=== PATIENT | male | born 1985 | race Caucasian/White ===

== ENCOUNTER → 2016-07-20 | Outpatient (REF) ==
[~2016-07-20] MED LIST: CLEOCIN HCL300 MG PO; DEPRESSION MED PO; MOTRIN 800800 MG/TAB PO; NO HOME MEDICATIONS; NORCO 325 MG-7.1 TAB PO; PERCOCET 325 MG1 TA2 PO; TAMIFLU 75MG75 MG PO; ZITHROMAX TRI-500 MG PO
== END ==
LOC: WSOH 13:05
DX: Z01.83 Encounter for blood typing (principal)

== ENCOUNTER 2016-09-04 19:56 | Emergency (ER) | payer BC ==
[~2016-09-04] VITALS: Ht 180.3 cm; Wt 87.3 kg
[2016-09-04 19:59] VITALS: TEMP 98.2
[2016-09-04 20:50] VITALS: BP 125/85; PULSE 76
== END 2016-09-04 20:50 | disposition home or self-care (01) ==
LOC: COL.ER 19:56
DX: S51.812A Laceration without foreign body of left forearm, initial encounter (principal); W22.8XXA Striking against or struck by other objects, initial encounter; Y92.009 Unspecified place in unspecified non-institutional (private) residence as the place of occurrence of the external cause

== ENCOUNTER 2017-07-18 16:37 | Emergency (ER) | payer SELFPAY ==
[~2017-07-18] VITALS: Ht 180.3 cm; Wt 90.0 kg
[2017-07-18 16:39] VITALS: TEMP 96.9
[2017-07-18] MEDS ORDERED: AMOXICILLIN 50500 MG PO (17:12)
[2017-07-18 17:37] VITALS: BP 125/74; PULSE 77
== END 2017-07-18 17:37 | disposition home or self-care (01) ==
LOC: COL.ER 16:37
DX: H66.011 Acute suppurative otitis media with spontaneous rupture of ear drum, right ear (principal)

== ENCOUNTER 2018-01-03 15:01 | Emergency (ER) | payer SELFPAY ==
[~2018-01-03] VITALS: Ht 180.3 cm; Wt 86.4 kg
[~2018-01-03 15:01] MED LIST changes: +AMOXICILLIN 50500 MG PO
[2018-01-03 15:09] VITALS: BP 137/85; TEMP 98
[2018-01-03 17:50] VITALS: PULSE 94
== END 2018-01-03 17:54 | disposition home or self-care (01) ==
LOC: COL.ER 15:01
DX: S69.92XA Unspecified injury of left wrist, hand and finger(s), initial encounter (principal); Z87.81 Personal history of (healed) traumatic fracture; V89.2XXA Person injured in unspecified motor-vehicle accident, traffic, initial encounter; Y92.830 Public park as the place of occurrence of the external cause
CPT/HCPCS: Q4021

== ENCOUNTER 2018-06-15 23:31 | Emergency (ER) | payer SELFPAY ==
[~2018-06-15] VITALS: Ht 180.3 cm; Wt 91.8 kg
[2018-06-15 23:56] VITALS: TEMP 98.8
[2018-06-16] MEDS ORDERED: NORCO 325 MG-51 TAB PO (02:18)
[2018-06-16] MEDS ORDERED: FLEXERIL 1010 MG/TAB PO (02:18)
[2018-06-16 02:45] VITALS: BP 119/77; PULSE 91
== END 2018-06-16 02:45 | disposition home or self-care (01) ==
LOC: COL.ER 23:31
DX: M54.5 Low back pain (principal); Z87.891 Personal history of nicotine dependence
CPT/HCPCS: J1885

== ENCOUNTER 2018-08-06 18:56 | Emergency (ER) | payer SELFPAY ==
[~2018-08-06] VITALS: Ht 180.3 cm; Wt 86.4 kg
[~2018-08-06 18:56] MED LIST changes: +FLEXERIL 1010 MG/TAB PO; +NORCO 325 MG-51 TAB PO
[2018-08-06 19:03] VITALS: BP 138/80; TEMP 98.3
[2018-08-06 20:20] VITALS: PULSE 53
== END 2018-08-06 20:20 | disposition home or self-care (01) ==
LOC: COL.ER 18:56
DX: B34.9 Viral infection, unspecified (principal); G40.909 Epilepsy, unspecified, not intractable, without status epilepticus; Z87.891 Personal history of nicotine dependence